=== PATIENT | female | born 1990 | race Two or more races ===

== ENCOUNTER 2020-09-07 17:31 | Emergency (ER) | payer OTHER ==
[~2020-09-07] VITALS: Ht 157.5 cm; Wt 104.3 kg
== END 2020-09-08 12:39 | disposition home or self-care (01) ==
LOC: ER 17:31
DX: O00.109 Unspecified tubal pregnancy without intrauterine pregnancy (principal); O46.8X1 Other antepartum hemorrhage, first trimester; Z3A.01 Less than 8 weeks gestation of pregnancy

== ENCOUNTER 2020-09-12 16:27 | Outpatient (CLI) | payer OTHER | END 2020-09-12 16:32 | disposition home or self-care (01) | LOC: LAB 16:27 | PROVIDERS: ATTEND Obstetrics & Gynecology | DX: O00.109 Unspecified tubal pregnancy without intrauterine pregnancy (principal) ==

== ENCOUNTER 2020-09-15 09:32 | Outpatient (CLI) | payer OTHER | END 2020-09-15 09:44 | disposition home or self-care (01) | LOC: LAB 09:32 | PROVIDERS: ATTEND Obstetrics & Gynecology | DX: O00.109 Unspecified tubal pregnancy without intrauterine pregnancy (principal) ==

== ENCOUNTER 2020-09-22 09:48 | Outpatient (CLI) | payer OTHER | END 2020-09-22 09:53 | disposition home or self-care (01) | LOC: LAB 09:48 | PROVIDERS: ATTEND Obstetrics & Gynecology | DX: O00.109 Unspecified tubal pregnancy without intrauterine pregnancy (principal) ==

== ENCOUNTER 2020-09-29 11:17 | Outpatient (CLI) | payer OTHER | END 2020-09-29 15:00 | disposition home or self-care (01) | LOC: LAB 11:17 | PROVIDERS: ATTEND Obstetrics & Gynecology | DX: O00.109 Unspecified tubal pregnancy without intrauterine pregnancy (principal) ==

== ENCOUNTER → 2020-10-13 | Outpatient (CLI) | payer OTHER | END | disposition home or self-care (01) | LOC: LAB 11:43 | PROVIDERS: ATTEND Obstetrics & Gynecology | DX: O00.119 Unspecified tubal pregnancy with intrauterine pregnancy (principal) ==

== ENCOUNTER 2020-10-27 11:08 | Outpatient (CLI) | payer OTHER | END 2020-10-27 11:15 | disposition home or self-care (01) | LOC: LAB 11:08 | PROVIDERS: ATTEND Obstetrics & Gynecology | DX: O00.109 Unspecified tubal pregnancy without intrauterine pregnancy (principal) ==

== ENCOUNTER 2020-11-13 15:59 | Outpatient (CLI) | payer OTHER | END 2020-11-13 16:05 | disposition home or self-care (01) | LOC: LAB 15:59 | PROVIDERS: ATTEND Obstetrics & Gynecology | DX: O00.01 Abdominal pregnancy with intrauterine pregnancy (principal) ==

== ENCOUNTER → 2023-01-30 | Outpatient (CLI) | payer OTHER | END | disposition home or self-care (01) | LOC: PRENATAL 08:06 | PROVIDERS: ATTEND Obstetrics & Gynecology Maternal & Fetal Medicine | DX: O36.80X0 Pregnancy with inconclusive fetal viability, not applicable or unspecified (principal); Z36.82 Encounter for antenatal screening for nuchal translucency; Z36.9 Encounter for antenatal screening, unspecified; O99.210 Obesity complicating pregnancy, unspecified trimester; Z3A.12 12 weeks gestation of pregnancy ==

== ENCOUNTER 2023-04-02 08:12 | Outpatient (CLI) | payer OTHER | END 2023-04-02 08:18 | disposition home or self-care (01) | LOC: PRENATAL 08:12 | PROVIDERS: ATTEND Obstetrics & Gynecology Maternal & Fetal Medicine | DX: O35.3XX0 Maternal care for (suspected) damage to fetus from viral disease in mother, not applicable or unspecified (principal); O44.00 Complete placenta previa NOS or without hemorrhage, unspecified trimester; Z3A.20 20 weeks gestation of pregnancy ==

== ENCOUNTER 2023-05-27 09:03 | Outpatient (CLI) | payer OTHER | END 2023-05-27 09:04 | disposition home or self-care (01) | LOC: PRENATAL 09:03 | PROVIDERS: ATTEND Obstetrics & Gynecology Maternal & Fetal Medicine | DX: O26.849 Uterine size-date discrepancy, unspecified trimester (principal); O99.210 Obesity complicating pregnancy, unspecified trimester; Z3A.28 28 weeks gestation of pregnancy ==